=== PATIENT | male | born 1970 | race Caucasian/White ===

== ENCOUNTER 2017-01-15 04:11 | Emergency (ER) | payer MEDICAID ==
[~2017-01-15] VITALS: Ht 172.7 cm; Wt 63.5 kg
[2017-01-15] MEDS ORDERED: LET TOPICAL SOLUTION 8 ML UDC TP ONE (04:45)
[2017-01-15] MEDS ORDERED: LIDOCAINE/PRILOCAINE 5 GM CREAM.GM. TP ONE (04:45)
[2017-01-15] MEDS ORDERED: LET TOPICAL SOLUTION 8 ML UDC ONE ×2 (04:48→04:50)
[2017-01-15] MEDS ORDERED: LIDOCAINE HCL 1% 20 ML VIAL IJ ONE (05:00)
[2017-01-15] MEDS ORDERED: NEOMY/BACITRA/POLYMYXIN B OINT UD PACKET TP ONE ×2 (05:15→05:22)
[2017-01-15 05:18] VITALS: BP 122/75
--- NOTE | 2017-01-15 05:18 | NUR ---
Patient discharged to home in stable conditon WITH FRIEND TAKING PATIENT HOME. Written and verbal after care instructions given. Patient verbalizes understanding of instructions. WALKED OUT OF ER WITH STEADY GAIT
== END 2017-01-15 05:19 | disposition home or self-care (01) ==
LOC: ER 04:14
DX: L03.011 Cellulitis of right finger (principal); F19.10 Other psychoactive substance abuse, uncomplicated
CPT/HCPCS: A4663

== ENCOUNTER 2017-01-16 21:53 | Emergency (ER) | payer MEDICAID ==
[~2017-01-16] VITALS: Ht 172.7 cm; Wt 63.5 kg
[2017-01-16] MEDS ORDERED: VANCOMYCIN 1G/D5W 200 ML PIGGYBACK IV ONE (23:00)
[2017-01-16] MEDS ORDERED: NEOMY/BACITRA/POLYMYXIN B OINT UD PACKET TP ONE ×2 (23:00→23:12)
[2017-01-16] MEDS ORDERED: MORPHINE SULFATE 2 MG/1 ML DISP.SYRIN IV ONE (23:00)
[2017-01-16] MEDS ORDERED: ONDANSETRON 4 MG/2 ML VIAL IV ONE (23:00)
[2017-01-16] MEDS ORDERED: VANCOMYCIN IV 200 ML ONE (23:12)
[2017-01-16] MEDS ORDERED: MORPHINE SULFATE 2 MG/1 ML DISP.SYRIN ONE (23:12)
[2017-01-16] MEDS ORDERED: ONDANSETRON 4 MG/2 ML VIAL ONE (23:12)
--- NOTE | 2017-01-17 01:47 | NUR ---
Patient discharged to home in stable conditon. Written and verbal after care instructions given. Patient verbalizes understanding of instructions.
== END 2017-01-17 01:49 | disposition home or self-care (01) ==
LOC: ER 21:54
DX: L03.011 Cellulitis of right finger (principal); F19.10 Other psychoactive substance abuse, uncomplicated
CPT/HCPCS: 73140; A4663; J2270; J2405; J3370

== ENCOUNTER 2017-01-17 20:50 | Emergency (ER) | payer MEDICAID ==
[~2017-01-17] VITALS: Ht 172.7 cm; Wt 63.5 kg
--- NOTE | 2017-01-17 21:37 | NUR ---
Patient discharged to home in stable conditon. Written and verbal after care instructions given. Patient verbalizes understanding of instructions.
== END 2017-01-17 21:38 | disposition home or self-care (01) ==
LOC: ER 20:52
DX: L03.011 Cellulitis of right finger (principal); F19.10 Other psychoactive substance abuse, uncomplicated
CPT/HCPCS: 99281; A4663